=== PATIENT | male | born 1995 | race Caucasian/White ===

== ENCOUNTER 2017-05-30 15:17 | Inpatient (IN) ==
[2017-05-30] MEDS ORDERED: ONDANSETRON 4 MG/2 ML VIAL IVP ONE (15:40)
[2017-05-30] MEDS ORDERED: KETOROLAC 15 MG/1 ML VIAL IVP ONE (15:40)
[2017-05-30] MEDS ORDERED: Sodium Chloride 0.9% 1,000 ML PRIMARY IV ONE ×2 (15:40→16:57)
--- NOTE | 2017-05-30 15:44 | PDOC ---
Abdomen/Flank HPI - General Chief Complaint: Abdomen Pain Stated Complaint: LOWER ABD PAIN Date Seen by Provider: 05/30/17 Time Seen by Provider: 15:39 Source: POSITIVE: Patient Exam Limitations: POSITIVE: No limitations Nurse's Notes Reviewed & Considered: Yes - History of Present Illness Initial Comments: This is a well-developed, well-nourished, 21-year-old male, complaining of abdominal pain. Patient with suprapubic abdominal pain and ongoing for 24 hours complaining of nausea vomiting, sweats and chills, and dysuria. His symptoms began suddenly yesterday and have escalated today. 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 He has a mild headache, denies sore throat, denies chest pain or shortness of breath, no cough. Body Location Affected: REPORTS: Abdomen Timing: REPORTS: Abrupt, Getting Worse Duration: >24 hours Severity: Severe Quality: REPORTS: "Pain" Abdominal Pain Onset Location: REPORTS: Suprapubic Abdominal Pain Radiation: REPORTS: RLQ, LLQ, Periumbilical, Groin Context: REPORTS: None Modifying Factors: improves with: Nothing Associated Symptoms: REPORTS: Chills, Diaphoresis, Nausea, Vomiting Similar Symptoms Previously: No Recent Care Received: REPORTS: Denies Any Prior Injuries Related to Current Complaint?: No - Patient Home Medications Home Medications: Home Medications NK [NK] 05/30/17 - Patient Allergies Allergies/Adverse Reactions: Allergies 3 Allergy/AdvReac Type Severity Reaction Status Date / Time No Known Allergies Allergy Verified 05/30/17 15:19 Past Medical History - heen HEENT History: Denies History Cardiovascular History: Denies History Respiratory History: Denies History Gastrointestinal History: Denies History Genitourinary History: Denies History Endocrine History: Denies History Musculoskeletal History: Denies History, Other (please comment) Prosthesis or Implant: No Additional Musculoskeletal History: RT LEG FX WITH SURGICAL REPAIR Neurological History: Denies History Blood Disorders: Denies History Psychiatric History: Denies History Cancer History: Denies History In Past Year Been Physically Harmed or Verbally Threatened: No History of MDRO: No Tobacco Use: Never Smoker Alcohol Use: None In the Past 12 Months, Have Used or Abuse Any Substance: None Previous Surgical History: Yes Type / Date of Surgery: RIGHT ANKLE Anesthesia Reactions: No Significant Family History: No pertinent family hx ROS - Limitations ROS Limitations: No Limitations Constitution: REPORTS: Chills, Diaphoresis Cardiovascular: REPORTS: Denies Cardiac Symptoms Respiratory: REPORTS: Denies Resp Symptoms Neurological: REPORTS: Headache Gastrointestinal: REPORTS: Abdominal Pain, Nausea, Vomitting Endocrine: REPORTS: Denies Symptoms Musculoskeletal: REPORTS: Denies MS Symptoms Genitourinary: REPORTS: Dysuria Eyes: REPORTS: Denies Symptoms ENT: REPORTS: Denies Symptoms Skin: REPORTS: Denies Skin Symptoms Lympathic: REPORTS: Denies Lympathic Symptoms Immunologic: POSITIVE: Denies Symptoms Psychiatric: POSITIVE: Denies Psych Symptoms Abdominal/Flank Pain PE - General Appearance General Appearance: POSITIVE: Alert, Cooperative, No Evidence of Trauma, Moderate Distress - HEENT HEENT: POSITIVE: Head Inspection Nml, Eyes Inspection Nml, Ears Inspection Nml, Nose Inspection Nml, Oral/Dental Inspect. Nml, Pharynx Inspect. Nml, PERRL, EOMI - Neck Neck: POSITIVE: Normal Inspection, No Apparent Injury - Respiratory Respiratory: POSITIVE: No Respiratory Distress, Breath Sounds Normal, Chest Non- Tender - Cardiovascular Cardiovascular: POSITIVE: Regular Rate and Rhythm, Heart Sounds Normal - Chest Chest: POSITIVE: Non Tender - Abdomen Abdomen: Soft: (All Quadrants), Normal Bowel Sounds: (All Quadrants), Denies Tenderness: (All Quadrants), No Splenomegaly: (All Quadrants), No Hepatomegaly: (All Quadrants), No Guarding: (All Quadrants), No Rebound: (All Quadrants), No Palpable Pulse: (All Quadrants), No Palpabale Mass: (All Quadrants), No Distention: (All Quadrants), No Rigidity: (All Quadrants) - Back Back: POSITIVE: Normal Inspection - Skin Skin: POSITIVE: Intact, Normal For Race, Warm, Dry, No Rash - Extremities Extremity: Non-Tender: (All Extremities), Normal ROM: (All Extremities), Normal Inspection: (All Extremities), Pelvis Stable: (All Extremities) - Neurological Neurological: POSITIVE: Oriented X3, Motor Normal, Sensation Normal - Psychological Psychiatric: POSITIVE: Affect Appropriate, Mood Appropriate Abdomen Progress - Results Reviewed by me Xrays/CTs/US Reviewed by me: Yes Discussed with Radiologist: Yes Radiology Findings: Acute appendicitis, retrocecal appendix, nonruptured Lab Results Reviewed by Me: Yes CBC and BMP: 05/30/17 15:32 05/30/17 15:32 - Patient's Progress Pain Medication Addressed: POSITIVE: Yes Re-examine Time: 18:37 Status: POSITIVE: Improved MDM / ED Course: Patient was examined, an IV started, blood drawn and sent to the lab for studies , radiographic examinations were obtained. Findings: CBC shows a white count of 14. CMP is unremarkable. CT scan of his abdomen shows retrocecal appendix with appendicitis and non-ruptured appendix. Assessment: Appendicitis Plan Dr. Loaiza, the on-call surgeon, has been contacted and is coming to the emergency room to evaluate the patient. - Consult Consult (If Yes, Name of Consulting MD & Time Called): Yes (Dr. Loaiza 1830hrs) Consulting MD will see pt:: POSITIVE: In ED Counseled: POSITIVE: Patient, Family, RE: Lab Results, RE: Radiology Results, RE : DX, RE: Need for F/U Patient Care Time - Estimated PCT Patient Care Time (In Minutes): 30 Vital Signs - VS Reviewed Vital Signs Reviewed: Yes Discharge Clinical Impression: Appendicitis Discharge Disposition: Transferred to OR Condition: Stable Follow Up With: NONE,NONE [Primary Care Provider] -
[2017-05-30 15:47] LABS: BASOPHILS # (AUTO) 0.02 10*3/UL; BASOPHILS % (AUTO) 0.2 % (0-1); EOSINOPHILS # (AUTO) 0 10*3/UL; EOSINOPHILS % (AUTO) 0 % (0-8); Hematocrit [HCT] 41.4 % (42.0-52.0); Hemoglobin [HGB] 14.2 g/dL (14.0-18.0); LYMPHOCYTES # (AUTO) 1.71 10*3/uL; MEAN CORPUSCULAR HEMOGLOBIN 29.2 PG (27-31); MEAN CORPUSCULAR HGB CONC 34.3 g/dL (33-37); MEAN CORPUSCULAR VOLUME 85.2 FL (80-90); MEAN PLATELET VOLUME 9.4 FL (7.4-12.2); MONOCYTES # (AUTO) 1.65 10*3/UL (0.3-0.8); MONOCYTES % (AUTO) 12.5 % (5-15); NEUTROPHILS # (AUTO) 9.84 10*3/UL; NEUTROPHILS % (AUTO) 74.3 % (50-80); RED BLOOD COUNT 4.86 10^6/uL (4.70-6.10)
[2017-05-30 15:49] LABS: PLATELET MORPHOLOGY COMMENT NORMAL MORPHOLOGY (NORM); RBC MORPHOLOGY COMMENT NORMAL MORPHOLOGY (NORM); WBC MORPHOLOGY COMMENT NORMAL MORPHOLOGY (NORM)
[2017-05-30 15:55] LABS: BLOOD UREA NITROGEN 8 mg/dL (7-22); BUN/CREATININE RATIO 8.88 (6-20); SERUM ALBUMIN 4.5 g/dL (3.5-4.8)
[2017-05-30 15:59] LABS: VENOUS PH 7.54 (7.32-7.42)
[2017-05-30] MEDS ORDERED: Magnesium Sulfate 2gm (Premix) 2 GM/50 ML BAG IV ONE ×2 (16:33→23:39)
[2017-05-30] MEDS ORDERED: ACETAMINOPHEN 500 MG TABLET PO ONE (16:42)
[2017-05-30 17:44] LABS: BILIRUBIN,URINE NEGATIVE (NEG); CLARITY,URINE CLEAR (CLEAR); GLUCOSE, URINE (UA) NEGATIVE (NEG); OCCULT BLOOD,URINE NEGATIVE (NEG); PROTEIN,URINE NEGATIVE (NEG); UROBILINOGEN,URINE 0.2 EU/dL (0.2)
[2017-05-30 17:45] LABS: COLOR,URINE AMBER (Y); URINE SAMPLE TYPE VOIDED SPECIMEN
[2017-05-30] MEDS ORDERED: MORPHINE SULFATE 2 MG/1 ML IVP ONE (18:07)
[2017-05-30] MEDS ORDERED: Lactated Ringers 1,000 ML PRIMARY IV ONE (18:33)
[2017-05-30] MEDS ORDERED: MORPHINE SULFATE 4 MG/1 ML IVP ONE (18:33)
--- NOTE | 2017-05-30 18:34 | DI ---
CT Abdomen/Pelvis W Contrast,05/30/2017 3:40 PM: Clinical History: Abdominal pain Previous Exam: None at this facility. Findings: Multiple helically acquired CT images are obtained through the abdomen and pelvis following the intra venous demonstration of 95 ECA of Isovue 300, and demonstrate some inflammatory fluid within the deep pelvis. There is thickening of the terminal ileum and some perienteric inflammatory changes of the t erminal ileum. There is dense material layering within the cecum. The liver, gallbladder, spleen, pancreas, adrenals and kidneys are unremarkable. There is no mesenteric nor retroperitoneal lymphadenopathy. The appendix is enlarged and inflamed ly suring 12 mm in diameter. Impression: Acute appendicitis with secondary inflammation of the terminal ileum and layering free fluid in the d eep pelvis.
[2017-05-30] MEDS ORDERED: BUPivacaine 0.5%/Epi Inj 50 ML VIAL ONE (19:16)
[2017-05-30] MEDS ORDERED: NORMAL SALINE 10 ML SYRINGE FLUSH IVP PRN ×3 (19:20→22:02)
[2017-05-30] MEDS ORDERED: PROPOFOL 10 MG/1 ML (200 MG/20 ML) VIAL IV ONE (19:21)
[2017-05-30] MEDS ORDERED: LIDOCAINE MPF 2% - 5 ML (20 MG/1 ML) ONE (19:22)
[2017-05-30] MEDS ORDERED: MIDAZOLAM 5 MG/1 ML ONE (19:22)
[2017-05-30] MEDS ORDERED: Sodium Chloride 0.9% vial 10 ML ONE (19:22)
[2017-05-30] MEDS ORDERED: SUFENTANIL 50 MCG/1 ML ONE (19:22)
[2017-05-30] MEDS ORDERED: ROCURONIUM 10 MG/1 ML - 5 ML VIAL IVP ONE (19:27)
[2017-05-30] MEDS ORDERED: KETAMINE 100 MG/1 ML - 5 ML ONE (19:28)
--- NOTE | 2017-05-30 19:29 | CONSULT ---
Consult Note - Consult Consult Date: 05/30/17 Reason for Consult: PreOp Consulation : General Surgery Requesting Physician: Dr. Gil Primary Care Provider: NONE NONE - History of Present Illness History of Present Illness: Patient is a 21-year-old male who presented to the emergency room with abdominal pain. Workup reveals acute appendicitis. I'm asked to see him in consultation. Patient reports that yesterday he started feeling like he had the flu. He had some nausea and vomiting and a little diarrhea. At approximately 2 AM this morning he felt cramping abdominal pain below his umbilicus. It felt stabbing. It hurt more with urination. He reports he hasn't had any nausea or vomiting since yesterday. He's had no fever or chills. He's never had a pain like this before. The patient has been constant. It is worse with activity. He presented to the emergency room. White count was elevated at 13,200. CT scan is consistent with acute retrocecal appendicitis with some free pelvic fluid. Possibility of ruptured appendix exists. Review of Systems - Gastrointestinal Gastrointestinal / Abdominal: REPORTS: Nausea, Vomiting, Diarrhea, Abdominal Pain, Poor Appetite, Bloating, See HPI Past Medical History Medical History: Substance abuse. Opiates. 38 days drug-free. Surgical History: Right ankle fracture Tobacco Use: Never Smoker Do you dip or chew tobacco: Yes In the Past 12 Months, Have Used or Abuse Any of the Following Substance: Opiate Pain Medication (Drug free 38 days.) Alcohol Use: Rarely Medication / Allergies Home Medications: Home Medications Medication Instructions Recorded Confirmed Type NK [NK] 05/30/17 05/30/17 History Allergies/Adverse Reactions: Allergies 3 Allergy/AdvReac Type Severity Reaction Status Date / Time No Known Allergies Allergy Verified 05/30/17 15:19 Results - Labs CBC and BMP: 05/30/17 15:32 05/30/17 15:32 - Imaging Status: Image Reviewed by Me (And discussed with the radiologist.), Report Reviewed by Me Exam - Vitals Vital Signs: Vital Signs Temperature 100.5 F Temperature Source Oral Pulse Rate [Pulse Oximeter] 82 Respiratory Rate 18 Blood Pressure [Right Arm] 109/49 Blood Pressure [Left Arm] 127/66 Pulse Ox 96 Oxygen Delivery Method Room Air Height 6 ft 1 in Weight 163 lb - General General Appearance: Cooperative, Mild Distress - Respiratory Respiratory Exam: POSITIVE: Clear to Auscultation - Bilaterally, Breathing Non Labored - Cardiovascular Cardiovascular Exam: POSITIVE: RRR, No Murmur - GI/Abdominal GI/Abdominal Exam: POSITIVE: Firm, Distended, Guarding, Hypoactive Bowel Sounds , Rebound Additional GI/Abdominal Exam Details: Right lower quadrant and suprapubic tenderness with focal rebound and guarding. Hypoactive bowel tones. - Rectal Rectal Exam: POSITIVE: Deferred - Neurological Neurological Exam: POSITIVE: Alert, Oriented x 3 - Psychiatric Psychiatric Exam: POSITIVE: Normal Affect, Normal Mood Assessment and Plan - Patient Problems (1) Acute appendicitis with localized peritonitis Current Visit: Yes Status: Acute Priority: High Onset Date: ~05/28/17 Comment: Consistent with acute appendicitis. Possible perforation. Proceed with open appendectomy.The procedure has been discussed with the patient in complete yet simple terms including benefits, risks, and alternatives. All questions have been answered. Informed consent has been obtained. Code(s): K35.3 - Acute appendicitis with localized peritonitis
[2017-05-30] MEDS ORDERED: Ertapenem Inj 1 GM in Sodium Chloride 0.9% 100 ML IV ONE (19:30)
[2017-05-30] MEDS ORDERED: Lactated Ringers 1,000 ML PRIMARY IV SCH (19:30)
[2017-05-30] MEDS ORDERED: ERTAPENEM 1 GM VIAL ONE (19:35)
[2017-05-30] MEDS ORDERED: Sodium Chloride 0.9% 100 ML IV ONE (19:35)
[2017-05-30] MEDS ORDERED: NEOSTIGMINE 1 MG/1 ML - 10 ML ONE (20:15)
[2017-05-30] MEDS ORDERED: GLYCOPYRROLATE 0.2 MG/1 ML VIAL ONE (20:15)
[2017-05-30] MEDS ORDERED: BUPivacaine Liposome/PF (Exparel) Inj 20ml vial INFIL ONE (20:36)
[2017-05-30] MEDS ORDERED: KETOROLAC 30 MG/1 ML VIAL ONE (20:38)
[2017-05-30] MEDS ORDERED: SUFENTANIL 50 MCG/1 ML IV ONE (20:46)
[2017-05-30] MEDS ORDERED: KETAMINE 100 MG/1 ML - 5 ML IV ONE (20:46)
--- NOTE | 2017-05-30 21:10 | GEN.OPNOTE ---
Operative Note Surgery Date: 05/30/17 Preoperative Diagnosis: Acute appendicitis-possible rupture. Postoperative Diagnosis: Acute appendicitis with gangrenous change. Probable rupture. Pelvic fluid. Procedure: Appendectomy. 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 1 g of IV Invanz at the start of the procedure. 30 mg of IV Toradol at the end of the procedure. Pathology: Specimen to pathology. Indications: Clinical exam and CT consistent with acute appendicitis. White count elevated to 13,000. Pelvic fluid present on CT scan. Findings: Acute appendicitis with gangrenous change at the base. Turbid fluid in the pelvis. No robert pus. Complications: None. Operative Summary: The patient was taken to the operating suite and placed on the operating table in a supine position. General anesthetic was administered per the ANATOLY. The abdomen was prepped and draped in a sterile fashion. The usual timeout was performed. An incision was made over McBurney's point and carried down to the external oblique with electrocautery. The external oblique was split along the course of its fibers with electrocautery. The abdominal wall was transected using a muscle-splitting technique. The peritoneum was elevated and incised. There was turbid fluid. This was cleared with suction. An Sage retractor was placed. The initial irrigation and suctioning were performed. The retrocecal appendix was mobilized digitally. The cecum and gangrenous appendix were delivered through the wound. The mesoappendix was taken down by serially clamping dividing and ligating the mesoappendix with 2-0 Vicryl sutures. This was done until the appendix was cleared to its base. The base the appendix was inspected. The gangrenous change went right to the base. The appendix was elevated. A 30 mm stapler was placed across the base of the cecum, closed, and fired. The appendix was amputated. The staple line was oversewn with a running imbricating suture of 2-0 Vicryl. Hemostasis was assured. Extensive irrigation was performed. The cecum was returned to a relative anatomic position and covered with omentum. The peritoneum was closed with 2-0 Vicryl. The internal oblique and transversus abdominis were closed together with 0 Vicryl. The wound was irrigated as we closed in layers. The external oblique was closed with 0 Vicryl. The wound was extensively irrigated. Lo's fascia was closed with 2- 0 Vicryl. The subcutaneous tissue was infiltrated with Exparel. The skin was loosely reapproximated with surgical lizbeth followed by an appropriate dressing. The patient tolerated all aspects of the procedure well without complication. He was taken to the recovery room in stable condition. All counts were correct. Patient Problems - Patient Problem List (1) Acute appendicitis with localized peritonitis Current Visit: Yes Status: Acute Onset Date: ~05/28/17 Priority: High Code(s): K35.3 - Acute appendicitis with localized peritonitis Category: Medical
--- NOTE | 2017-05-30 21:37 | CRNA.PROGR ---
Anesthesia Recovery Phase I - Post Anesthesia Evaluation Patient's Condition on Arrival in Phase I: Unstable Patient's Condition on Arrival in Phase II: Fair Pain Level: 0 (Pt is in negative pressure pulmonary edema as a result of laryngospasm during emergence from GETA.)
[2017-05-30] MEDS ORDERED: SUCCINYLCHOLINE CHLORIDE 20 MG/1 ML - 10 ML ONE (21:55)
[2017-05-30] MEDS ORDERED: ONDANSETRON 4 MG/2 ML VIAL IVP PRN (22:02)
[2017-05-30] MEDS ORDERED: HYDROcodone-APAP 5 MG -325 MG TABLET PO PRN (22:02)
--- NOTE | 2017-05-30 22:16 | CRNA.PROGR ---
Post Anesthesia Phase II - Post Anesthesia Phase II Problems, Treatments or Complications During Recovery: Pt acquired negative pressure pulmonary edema after a laryngospasm post extubation during emergence. Patient Stable and Discharged To: Med/Surg Care Assumed By Surgeon: Wilver Loaiza MD Temperature: 98.8 F Pulse Rate: 81 Respiratory Rate: 20 Blood Pressure: 108/61 Pulse Ox: 96 Total Franchesca Score at Discharge: 8 Post Anesthesia Discharge Criteria Met: Yes Additional Details: Pts respiratory status continues to improve with the dose of lasix and the positive pressure, bipap. VSS, Alert And Oriented, pain under control
--- NOTE | 2017-05-30 22:17 | CRNA.PROGR ---
Anesthesia Time - - Start date: 05/30/17 End date: 05/30/17 - Procedure/Recovery Time Anesthesia : Time In: 19:35 Anesthesia : Time Out: 21:35 Anesthesia : Total Time: 120 - Total Anesthesia Time Total Anesthesia Time (minutes): 120 - Other Weight: 73.936 kg Height: 6 ft 1 in Body Mass Index (BMI): 21.4 Physical Status: P2 Anesthesia Type: General Anesthesia : ET
--- NOTE | 2017-05-30 23:25 | CONSULT ---
Consult Note - Consult Consult Date: 05/30/17 Reason for Consult: PostOp Consulation : General Surgery Primary Care Provider: NONE NONE HPI - History of Present Illness Date of Service: 05/30/17 Time of Service: 23:25 Chief Complaint: respiratory failure History of Present Illness: This is a pleasant 21 YO male that recently stopped using narcotics and has no other medical issues who presented with an acute appendicitis today. He states he had abdominal pain and nausea and vomiting a day and a half before coming in for evaluation in the ER today. He went to surgery today with Dr. Loaiza, and as he was being extubated, the patient developed severe laryngospasm. He was extubated and developed a pink, frothy cough. He was hypoxic. He was placed on BiPaP, was given oxygen and lasix. The patient tells me he feels a bit better, but is still saturating about 89% on 5 LPM NC. A chest X-ray was consistent with flash pulmonary edema. He has never had this happen before. He does state his abdomen hurts. He does not smoke, but does chew tobacco. He denies any cardiac issues. Past Medical History Medical History: Substance abuse. Opiates. 38 days drug-free. Surgical History: Right ankle fracture Pertinent Family History: no history of heart disease or diabetes in the family. Past Social History: does not smoke. denies alcohol abuse. works as an airplane electrician. recently quit opiates. Tobacco Use: Never Smoker Do you dip or chew tobacco: Yes In the Past 12 Months, Have Used or Abuse Any of the Following Substance: Opiate Pain Medication Alcohol Use: Rarely Review of Systems - Review of Systems All Systems: Reviewed & No Additional Complaints Except as Stated (I did a 12 point review of systems and it was negative except as per HPI.) Medication / Allergies Home Medications: Home Medications Medication Instructions Recorded Confirmed Type NK [NK] 05/30/17 05/30/17 History Allergies/Adverse Reactions: Allergies 3 Allergy/AdvReac Type Severity Reaction Status Date / Time No Known Allergies Allergy Verified 05/30/17 15:19 Exam - Vitals Vital Signs: Vital Signs Temperature 98.8 F Temperature Source Temporal Artery Scan Pulse Rate [Pulse Oximeter] 77 Pulse Rate 81 Respiratory Rate 20 Blood Pressure [Right Arm] 99/65 Blood Pressure [Left Arm] 105/60 Blood Pressure 108/61 Pulse Ox 96 Oxygen Flow Rate bipap Oxygen Delivery Method Nasal Cannula Height 6 ft 1 in Weight 163 lb - General General Appearance: Cooperative, Mild Distress Additional General Exam Details: coughing frequently, pink, frothy sputum. - Head Head Exam: Normal Inspection, Normocephalic, Atraumatic - Eye Eye Exam: POSITIVE: No Scleral Icterus - ENT ENT Exam: POSITIVE: Mucous Membranes Dry - Neck Neck Exam: Normal Inspection, No Tenderness, No Lymphadenopathy, No Thyromegaly - Respiratory Respiratory Exam: POSITIVE: Decreased Breath Sounds, Rhonci, Crackles, Coarse Breath Sounds - Cardiovascular Cardiovascular Exam: POSITIVE: RRR, No Murmur, No Clicks, No Gallops, No Rubs, No JVD - GI/Abdominal GI/Abdominal Exam: POSITIVE: Non Distended, Soft - Rectal Rectal Exam: POSITIVE: Deferred - External Exam: POSITIVE: Deferred Exam: POSITIVE: Deferred - Extremities Extremities Exam: POSITIVE: No Clubbing Present, No Edema Present, No Cyanosis Present - Back Back Exam: POSITIVE: No CVA Tenderness - Neurological Neurological Exam: POSITIVE: Alert, Oriented x 3, No Facial Droop, Speech Intact / Clear, Moves All Extremities Equally - Psychiatric Psychiatric Exam: POSITIVE: Normal Affect, Normal Mood - Integumentary Integumentary Exam: POSITIVE: Normal Color, Warm, Dry, Intact Results - Labs CBC and BMP: 05/30/17 15:32 05/30/17 15:32 Additional Lab Results: Laboratory Results 05/30/17 05/30/17 05/30/17 Range/Units 15:32 15:32 15:32 WBC 13.23 H (4.8-10.8) 10^3/uL RBC 4.86 (4.70-6.10) 10^6/uL Hgb 14.2 (14.0-18.0) g/dL Hct 41.4 L (42.0-52.0) % MCV 85.2 (80-90) FL MCH 29.2 (27-31) PG MCHC 34.3 (33-37) g/dL RDW Std Deviation 39.1 (39-50) fL RDW Coeff of Inocencia 12.7 (11.5-14.5) % Plt Count 215 (140-350) 10*3/uL MPV 9.4 (7.4-12.2) FL Immature Gran % (Auto) 0.1 (0-5) % Neut % (Auto) 74.3 (50-80) % Lymph % (Auto) 12.9 (10-50) % [place] % (Auto) 12.5 (5-15) % Eos % (Auto) 0 (0-8) % Baso % (Auto) 0.2 (0-1) % Immature Gran # (Auto) 0.01 10*3/UL Neut # (Auto) 9.84 10*3/UL Lymph # (Auto) 1.71 10*3/uL [place] # (Auto) 1.65 H (0.3-0.8) 10*3/UL Eos # (Auto) 0 10*3/UL Baso # (Auto) 0.02 10*3/UL WBC Morphology Comment Normal morphology (NORM) Plt Morphology Comment Normal morphology (NORM) RBC Morph Comment Normal morphology (NORM) VBG pH (7.32-7.42) VBG pCO2 (45-55) mmHg VBG HCO3 (22-26) mmol/L VBG Base Excess (-2-2) MMOL/L Sodium 142 (135-145) meq/L Potassium 3.1 L (3.8-5.2) meq/L Chloride 102 (98-112) meq/L Carbon Dioxide 25 (23-33) meq/L Anion Gap 15 (5-20) BUN 8 (7-22) mg/dL Creatinine 0.9 (0.70-1.50) mg/dL Estimated GFR > 60 (>60 ml/min/1.73m(2)) BUN/Creatinine Ratio 8.88 (6-20) Glucose 125 H (78-110) mg/dL Calculated Osmolality 292.0 (267-292) mOsm/kg Lactic Acid 1.2 (0.70-2.10) MMOL/L Calcium 9.0 (8.7-10.7) mg/dL Magnesium 1.4 L (1.6-2.4) mg/dL Total Bilirubin 1.3 H (0.3-1.2) mg/dL AST 19 L (21-57) IU/L ALT 67 (21-72) IU/L Alkaline Phosphatase 123 (38-126) IU/L C-Reactive Protein 5.7 H (0.0-0.9) mg/dL Total Protein 7.7 (6.1-8.0) g/dL Albumin 4.5 (3.5-4.8) g/dL Globulin 3.2 (2.50-4.10) g/dL Albumin/Globulin Ratio 1.40 (1.3-2.0) mg/g Ur Collection Type Urine Color (Y) Urine Clarity (CLEAR) Urine pH (5.0-8.5) Ur Specific [place] (1.005-1.030) Urine Protein (NEG) mg/dl Urine Glucose (UA) (NEG) mg/dL Urine Ketones (NEG) Urine Occult Blood (NEG) Urine Nitrate (NEG) Urine Bilirubin (NEG) Urine Urobilinogen (0.2) EU/dL Ur Leukocyte Esterase (NEG) Ur Culture Indicated? 05/30/17 05/30/17 Range/Units 15:54 17:40 WBC (4.8-10.8) 10^3/uL RBC (4.70-6.10) 10^6/uL Hgb (14.0-18.0) g/dL Hct (42.0-52.0) % MCV (80-90) FL MCH (27-31) PG MCHC (33-37) g/dL RDW Std Deviation (39-50) fL RDW Coeff of Inocencia (11.5-14.5) % Plt Count (140-350) 10*3/uL MPV (7.4-12.2) FL Immature Gran % (Auto) (0-5) % Neut % (Auto) (50-80) % Lymph % (Auto) (10-50) % [place] % (Auto) (5-15) % Eos % (Auto) (0-8) % Baso % (Auto) (0-1) % Immature Gran # (Auto) 10*3/UL Neut # (Auto) 10*3/UL Lymph # (Auto) 10*3/uL [place] # (Auto) (0.3-0.8) 10*3/UL Eos # (Auto) 10*3/UL Baso # (Auto) 10*3/UL WBC Morphology Comment (NORM) Plt Morphology Comment (NORM) RBC Morph Comment (NORM) VBG pH 7.54 H (7.32-7.42) VBG pCO2 30 L (45-55) mmHg VBG HCO3 26 (22-26) mmol/L VBG Base Excess 3 H (-2-2) MMOL/L Sodium (135-145) meq/L Potassium (3.8-5.2) meq/L Chloride (98-112) meq/L Carbon Dioxide (23-33) meq/L Anion Gap (5-20) BUN (7-22) mg/dL Creatinine (0.70-1.50) mg/dL Estimated GFR (>60 ml/min/1.73m(2)) BUN/Creatinine Ratio (6-20) Glucose (78-110) mg/dL Calculated Osmolality (267-292) mOsm/kg Lactic Acid (0.70-2.10) MMOL/L Calcium (8.7-10.7) mg/dL Magnesium (1.6-2.4) mg/dL Total Bilirubin (0.3-1.2) mg/dL AST (21-57) IU/L ALT (21-72) IU/L Alkaline Phosphatase (38-126) IU/L C-Reactive Protein (0.0-0.9) mg/dL Total Protein (6.1-8.0) g/dL Albumin (3.5-4.8) g/dL Globulin (2.50-4.10) g/dL Albumin/Globulin Ratio (1.3-2.0) mg/g Ur Collection Type Voided specimen Urine Color [place] A (Y) Urine Clarity Clear (CLEAR) Urine pH 7.0 (5.0-8.5) Ur Specific [place] 1.010 (1.005-1.030) Urine Protein Negative (NEG) mg/dl Urine Glucose (UA) Negative (NEG) mg/dL Urine Ketones Negative (NEG) Urine Occult Blood Negative (NEG) Urine Nitrate Negative (NEG) Urine Bilirubin Negative (NEG) Urine Urobilinogen 0.2 (0.2) EU/dL Ur Leukocyte Esterase Negative (NEG) Ur Culture Indicated? Culture not set - Imaging Status: Image Reviewed by Me (CXR, on my view, consistent with flash pulmonary edema), Report Reviewed by Me (I reviewed the CT of the abdomen report.) Assessment and Plan - Patient Problems (1) Flash pulmonary edema Current Visit: Yes Status: Acute Code(s): J81.0 - Acute pulmonary edema (2) Acute respiratory distress syndrome (ARDS) Current Visit: Yes Status: Acute Code(s): J80 - Acute respiratory distress syndrome (3) Acute post-operative pain Current Visit: Yes Status: Acute Code(s): G89.18 - Other acute postprocedural pain (4) Hypomagnesemia Current Visit: Yes Status: Acute Code(s): E83.42 - Hypomagnesemia (5) Hypokalemia Current Visit: Yes Status: Acute Code(s): E87.6 - Hypokalemia (6) Laryngospasm Current Visit: Yes Status: Acute Code(s): J38.5 - Laryngeal spasm (7) Appendicitis Current Visit: Yes Status: Acute Code(s): K37 - Unspecified appendicitis - Assessment / Plan Additional Assessment/Plan Details: this is most likely a situation of negative pressure induced pulmonary edema ( noncardiogenic pulmonary edema) in which the described laryngospasm can create an acute negative intrathoracic pressure. Probably this caused damage to capillaries in the lung, and with increased venous return, likely led to leaky capillaries. at this point, BiPaP may help given electrolyte abnormalities, I would recommend replacing magnesium and potassium aggressively may need further doses of lasix, but would like to get electrolytes replaced. morphine, despite the history of narcotic addiction, may help reduce afterload and may help with edema. though this is a rare event, reportedly in less than 0.1% in general anesthesia cases per my literature review, it is more common in younger, athletic males. some patients can decompensate and require intubation and mechanical ventilation --I think it would be best to get the eICU involved. If the patient does end up requiring intubation, I would recommend transfer at that point, but for now, I think we are okay watching the patient here, but I will move him to one of our camera rooms for eICU monitoring. check CXR in AM thanks for consult, will be glad to follow and assist in the patient's care during the hospital stay.
[2017-05-30] MEDS: MORPHINE SULFATE 2 MG/1 ML IVP PRN (23:31)
[2017-05-30 23:59] LABS: BLOOD UREA NITROGEN 9 mg/dL (7-22)
[2017-05-31] MEDS ORDERED: Sodium Chloride 0.9% 500 ML IV ONE (00:02)
[2017-05-31] MEDS: Zolpidem Tab 5 MG TAB PO PRN ×2 (00:08→21:22)
[2017-05-31] MEDS: MORPHINE SULFATE 2 MG/1 ML IVP PRN ×2 (00:19→07:28)
[2017-05-31] MEDS: Acetaminophen 1000mg Inj 1,000 MG/100 ML VIAL IV PRN ×3 (00:45→17:06)
[2017-05-31] MEDS: KETOROLAC 15 MG/1 ML VIAL IVP SCH ×4 (02:21→20:29)
[2017-05-31 05:09] LABS: BASOPHILS # (AUTO) 0.02 10*3/UL; BASOPHILS % (AUTO) 0.1 % (0-1); EOSINOPHILS # (AUTO) 0 10*3/UL; EOSINOPHILS % (AUTO) 0 % (0-8); Hemoglobin [HGB] 13.4 g/dL (14.0-18.0); LYMPHOCYTES # (AUTO) 0.83 10*3/uL; MEAN CORPUSCULAR HEMOGLOBIN 28.9 PG (27-31); MEAN CORPUSCULAR HGB CONC 33.5 g/dL (33-37); MEAN CORPUSCULAR VOLUME 86.2 FL (80-90); MONOCYTES # (AUTO) 0.73 10*3/UL (0.3-0.8); MONOCYTES % (AUTO) 5.4 % (5-15); NEUTROPHILS # (AUTO) 11.95 10*3/UL; NEUTROPHILS % (AUTO) 88.3 % (50-80); RED BLOOD COUNT 4.64 10^6/uL (4.70-6.10)
[2017-05-31 05:14] LABS: PLATELET MORPHOLOGY COMMENT NORMAL MORPHOLOGY (NORM); RBC MORPHOLOGY COMMENT NORMAL MORPHOLOGY (NORM); WBC MORPHOLOGY COMMENT NORMAL MORPHOLOGY (NORM)
[2017-05-31 05:18] LABS: BLOOD UREA NITROGEN 11 mg/dL (7-22); BUN/CREATININE RATIO 13.75 (6-20)
--- NOTE | 2017-05-31 08:07 | DI ---
XR CXR 1VW,05/30/2017 9:15 PM: Clinical History: Pulmonary edema Previous Exam: October 06, 2009 Findings: A single frontal radiograph of the chest is obtained, and demonstrates diffuse pulmonary edema. Overl sergei EKG leads are seen. The cardiomediastinum and bony thorax are unremarkable. Impression: Diffuse pulmonary edema.
--- NOTE | 2017-05-31 08:09 | DI ---
XR CXR 1VW,05/31/2017 7:00 AM: Clinical History: Pulmonary edema Previous Exam: May 30, 2017 Findings: A single frontal radiograph of the chest is obtained, and demonstrate some stable pulmonary edema. Ov erlying EKG leads are seen. The cardiomediastinum and bony thorax are unremarkable. Impression: Diffuse pulmonary edema essentially unchanged from the prior exam.
--- NOTE | 2017-05-31 09:35 | CRNA.PROGR ---
Anesthesia Note - Progress Notes Anesthesia Progress Note: Post OP Anesthesia Note Pt is sitting up in bed, A&O, resting comfortably. Coughing has reduced significantly. Vital signs have remained stable throughout the night. The patients lung sounds have cleared up on the right but remain "wet" on the left. CXR this am shows significant improvement from last nights CXR. I encouraged the patient to wear the BIPAP mask for as long as possible today. Current VS. Vital Signs (Last 8 hours) Temp Pulse Resp BP Pulse Ox 05/31/17 04:33 97.8 F 74 23 103/62 96 05/31/17 03:16 95 05/31/17 02:00 98.3 F 78 24 90/50 93
[2017-05-31] MEDS ORDERED: HYDROmorphone 2 MG/1 ML IVP ONE (10:10)
--- NOTE | 2017-05-31 12:17 | PDOC(PROG) ---
Subjective Post Op Day: 1 Pain Management: IV narcotic, Tylenol and Toradol Larson Catheter: No Flatus: Yes Diet: NPO Ambulating: Yes Date and Time of Service: 05/31/2017 12:12 PM Interval History: Patient had an uncomplicated appendectomy last night. Postoperatively he developed flash pulmonary edema. He has improved significantly overnight. He is down to 2 L of O2 per nasal cannula. With all of his coughing he has had more pain than usual. He has required some narcotics as well as IV Tylenol and Toradol. His coughing has decreased. Patient reports he is passing gas. He has not had a bowel movement. He is hungry and would like something to eat. I discussed his surgery as well as his flash pulmonary edema with the patient and his grandfather. All questions have been answered. Objective : Data - Labs CBC and BMP: 05/31/17 04:24 05/31/17 04:24 - Imaging Imaging Details: Chest x-ray this morning shows pulmonary edema. - Vital Signs Vital Signs and I&O: Vital Signs - Last Taken Temperature 98 F 05/31/17 09:00 Pulse Rate 66 05/31/17 09:00 Respiratory Rate 26 H 05/31/17 09:00 Blood Pressure 93/50 05/31/17 09:00 Pulse Ox 92 05/31/17 10:23 Intake and Output (24hr x 4 totals) 05/29/17 05/30/17 05/31/17 06/01/17 05:59 05:59 05:59 05:59 Intake Total 1387 / 3434 30 / 30 Output Total 350 / 650 550 / 550 Balance 1037 / 2784 -520 / -520 Objective : Exam - General General Appearance: No Acute Distress, Cooperative - Respiratory Respiratory Exam: Breathing Non Labored, Coarse Breath Sounds - Cardiovascular Cardiovascular Exam: RRR, No Murmur - GI/Abdominal GI/Abdominal Exam: Non Distended, Soft, Hypoactive Bowel Sounds Additional GI/Abdominal Exam Details: The dressing is clean, and dry and intact. The abdomen is soft. There is lower abdominal tenderness. Maximal at the dressing site. No signs of peritoneal irritation. - Neurological Neurological Exam: Alert - Psychiatric Psychiatric Exam: Flat Affect Assessment and Plan - Patient Problems (1) Acute appendicitis with localized peritonitis Current Visit: Yes Status: Acute Priority: High Onset Date: ~05/28/17 Comment: Status post appendectomy. Doing well. Had necrosis at the base of the appendix with turbid fluid in the pelvis. White count remains elevated. Continue to treat him as a ruptured appendix. We will start him on a full liquid diet and Hep-Lock his IV. Check labs in the morning. Code(s): K35.3 - Acute appendicitis with localized peritonitis (2) Flash pulmonary edema Current Visit: Yes Status: Acute Priority: Medium Onset Date: 05/30/17 Comment: Seems to be improving. Will Hep-Lock IV fluids. Continue pulmonary toilet. Code(s): J81.0 - Acute pulmonary edema
--- NOTE | 2017-05-31 16:48 | PDOC(PROG) ---
Date and Time of Service: 05/31/2012, 9 AM Interval History: No chest pain. Shortness of breath is better, patient states that he is not coughing up is much pink frothy sputum, but he swallowing more. He is down to 4 L per nasal cannula on his oxygen. Tolerated BiPAP for about half of the night and then discontinued. Abdominal pain persistent. Objective : Data - Labs CBC and BMP: 05/31/17 04:24 05/31/17 04:24 Additional Lab Results: 05/30/17 23:28 Calcium 8.8 Magnesium 1.6 Total Bilirubin 1.4 H AST 23 ALT 48 Alkaline Phosphatase 117 Total Protein 7.1 Albumin 4.0 Globulin 3.1 - Imaging X-Ray Status: Image Reviewed by Me (Chest x-ray, on my result, significant with pulmonary edema, not largely unchanged from yesterday.) Objective : Exam - General General Appearance: No Acute Distress, Cooperative - Head Head Exam: Normal Inspection, Normocephalic, Atraumatic - Eye Eye Exam: No Scleral Icterus - ENT ENT Exam: Mucous Membranes Moist - Respiratory Respiratory Exam: Breathing Non Labored, Rhonci, Coarse Breath Sounds - Cardiovascular Cardiovascular Exam: RRR, No Murmur, No Clicks, No Gallops, No Rubs, No JVD - GI/Abdominal GI/Abdominal Exam: Normal Bowel Sounds, Non Distended, Soft - Extremities Extremities Exam: No Clubbing Present, No Edema Present, No Cyanosis Present - Neurological Neurological Exam: Alert, Oriented x 3, No Facial Droop, Speech Intact / Clear, Moves All Extremities Equally Assessment and Plan - Patient Problems (1) Flash pulmonary edema Current Visit: Yes Status: Acute Priority: Medium Onset Date: 05/30/17 Code(s): J81.0 - Acute pulmonary edema (2) Acute respiratory distress syndrome (ARDS) Current Visit: Yes Status: Acute Code(s): J80 - Acute respiratory distress syndrome (3) Acute post-operative pain Current Visit: Yes Status: Acute Code(s): G89.18 - Other acute postprocedural pain (4) Hypomagnesemia Current Visit: Yes Status: Acute Code(s): E83.42 - Hypomagnesemia (5) Hypokalemia Current Visit: Yes Status: Acute Code(s): E87.6 - Hypokalemia (6) Laryngospasm Current Visit: Yes Status: Acute Code(s): J38.5 - Laryngeal spasm (7) Appendicitis Current Visit: Yes Status: Acute Code(s): K37 - Unspecified appendicitis - Assessment / Plan Additional Assessment/Plan Details: Definitely improved clinically, but still tenuous. I like to check another chest x-ray tomorrow. If his high oxygen requirement persists through the day, may need to consider Lasix even though he is low systolic pressures to slightly hypotensive (albeit asymptomatic) Check labs again in a.m. Postsurgical management as per Dr. Loaiza Hold off on any steroids. I don't think they will be helpful.
[2017-05-31] MEDS: oxyCODONE-ACETAMINOPHEN 5-325 TAB PO PRN ×2 (17:05→20:38)
[2017-05-31] MEDS: Ertapenem Inj 1 GM in Sodium Chloride 0.9% 100 ML IV SCH (20:28)
[2017-06-01] MEDS: Acetaminophen 1000mg Inj 1,000 MG/100 ML VIAL IV PRN (01:21)
[2017-06-01] MEDS: oxyCODONE-ACETAMINOPHEN 5-325 TAB PO PRN ×6 (01:24→20:02)
[2017-06-01] MEDS: KETOROLAC 15 MG/1 ML VIAL IVP SCH ×4 (04:42→20:03)
[2017-06-01 05:23] LABS: BASOPHILS # (AUTO) 0.01 10*3/UL; BASOPHILS % (AUTO) 0.1 % (0-1); EOSINOPHILS # (AUTO) 0.09 10*3/UL; EOSINOPHILS % (AUTO) 1.1 % (0-8); Hematocrit [HCT] 34.3 % (42.0-52.0); Hemoglobin [HGB] 11.3 g/dL (14.0-18.0); LYMPHOCYTES # (AUTO) 2.21 10*3/uL; MEAN CORPUSCULAR HGB CONC 32.9 g/dL (33-37); MEAN CORPUSCULAR VOLUME 87.9 FL (80-90); MEAN PLATELET VOLUME 9.8 FL (7.4-12.2); MONOCYTES % (AUTO) 11.1 % (5-15); NEUTROPHILS # (AUTO) 4.89 10*3/UL; NEUTROPHILS % (AUTO) 60.3 % (50-80)
[2017-06-01 05:26] LABS: PLATELET MORPHOLOGY COMMENT NORMAL MORPHOLOGY (NORM); RBC MORPHOLOGY COMMENT NORMAL MORPHOLOGY (NORM); WBC MORPHOLOGY COMMENT NORMAL MORPHOLOGY (NORM)
[2017-06-01 05:31] LABS: BLOOD UREA NITROGEN 10 mg/dL (7-22)
--- NOTE | 2017-06-01 07:33 | DI ---
XR CXR 1VW,06/01/2017 7:00 AM: Clinical History: Pulmonary edema Previous Exam: May 31, 2017 Findings: A single frontal radiograph of the chest is obtained, and demonstrate some stable airspace disease th roughout both lungs. The cardiomediastinum and bony thorax are unremarkable. Impression: Stable diffuse pulmonary edema.
--- NOTE | 2017-06-01 08:05 | PDOC(PROG) ---
Date and Time of Service: 06/01/2017 8 AM Interval History: Subjective Patient complaining from being sore and he points to the incision, he said he is also sore in his chest because of the coughing. Shortness of breath seemed to be improved. He is off the oxygen. Continue to have some cough. No significant phlegm production. Objective : Data - Labs CBC and BMP: 06/01/17 04:50 06/01/17 04:50 Objective : Exam - General General Appearance: No Acute Distress, Cooperative, Thin - Head Head Exam: Normal Inspection, Atraumatic - Eye Eye Exam: Normal Appearance - ENT ENT Exam: Normal Exam - Neck Neck Exam: Normal Inspection - Respiratory Respiratory Exam: Clear to Auscultation - Bilaterally - Cardiovascular Cardiovascular Exam: RRR - GI/Abdominal GI/Abdominal Exam: Normal Bowel Sounds, Non Distended, Soft Additional GI/Abdominal Exam Details: Dressing applied to the right lower quadrant. - Rectal Rectal Exam: Deferred - External Exam: Deferred Exam: Deferred - Extremities Extremities Exam: Normal Inspection - Back Back Exam: Normal Inspection - Neurological Neurological Exam: Alert, Oriented x 3, CN II-XII Intact, Speech Intact / Clear , Moves All Extremities Equally - Psychiatric Psychiatric Exam: Normal Affect Assessment and Plan - Patient Problems (1) Appendicitis Current Visit: Yes Status: Acute Comment: Management per Dr. Loaiza. His white count is coming down. Code(s): K37 - Unspecified appendicitis (2) Flash pulmonary edema Current Visit: Yes Status: Acute Priority: Medium Onset Date: 05/30/17 Comment: This looks like to be negative pressure pulmonary edema, on talking to the nurse anesthesiologist, patient did have the laryngeal spasm post extubation and he did drop his oxygen he needed to BiPAP and the furosemide. His x-ray seems to be stable. Clinically I don't hear any additional sounds is no murmur, his JVP is not raised. Lungs to me seem to be clear. History goes with negative pressure pulmonary edema. I'm not sure there is a value now as incident happened 2 days ago from ordering troponin or a BNP or an echo. As clinically there is no heart murmurs and lungs seem to be clear and JVP is not raised. And he is improving in trems of oxygen needs. This can be looked at later on as an outpatient. Code(s): J81.0 - Acute pulmonary edema (3) Acute post-operative pain Current Visit: Yes Status: Acute Comment: He is on pain medications Code(s): G89.18 - Other acute postprocedural pain (4) Hypokalemia Current Visit: Yes Status: Acute Comment: Resolved. Code(s): E87.6 - Hypokalemia
[2017-06-01] MEDS ORDERED: FUROSEMIDE 10 MG/1 ML - 2 ML VIAL IVP ONE (09:22)
--- NOTE | 2017-06-01 09:30 | PDOC(PROG) ---
Subjective Post Op Day: 2 Pain Management: PO Larson Catheter: No Flatus: Yes Diet: full liquids Ambulating: Yes Date and Time of Service: 06/01/2017 9:20 AM Interval History: Feeling better every day. Doesn't like the full liquid diet. Would like some regular food. Passing gas. Reports he had 2 loose stools yesterday. He is voiding without problem. He reports he is sore all over in his abdomen from the coughing. His chest is sore as well. The coughing has decreased since yesterday. No significant sputum production. Patient is ambulating. When I ask him to sit up he sits up easily. When he was asked to get out of bed he stood up without apparent or significant abdominal pain. His I's and O's are +3700 mL. His hemoglobin and hematocrit have decreased. I think this is dilutional. No signs of bleeding. His white count has decreased to normal. His chest x-ray still shows pulmonary edema. I think it is improved slightly. Objective : Data - Labs CBC and BMP: 06/01/17 04:50 06/01/17 04:50 - Imaging Imaging Details: Chest x-ray read as stable diffuse pulmonary edema. - Vital Signs Vital Signs and I&O: Vital Signs - Last Taken Temperature 99.2 F 06/01/17 08:41 Pulse Rate 78 06/01/17 08:41 Respiratory Rate 18 06/01/17 08:41 Blood Pressure 108/61 06/01/17 08:41 Pulse Ox 91 06/01/17 08:41 Intake and Output (24hr x 4 totals) 05/30/17 05/31/17 06/01/17 06/02/17 05:59 05:59 05:59 05:59 Intake Total 1387 / 3434 1577 / 1577 Output Total 350 / 650 650 / 650 500 / 500 Balance 1037 / 2784 927 / 927 -500 / -500 Objective : Exam - General General Appearance: No Acute Distress, Cooperative - Respiratory Respiratory Exam: Breathing Non Labored, Rales (Bilateral bases.), Coarse Breath Sounds (Bilateral bases.) - Cardiovascular Cardiovascular Exam: RRR, No Murmur - GI/Abdominal GI/Abdominal Exam: Normal Bowel Sounds, Non Distended, Soft, No Masses Additional GI/Abdominal Exam Details: The dressing is clean, dry, and intact. When I barely touched the patient with my hand he winces as though he is in pain. However when I press on his abdomen with a stethoscope it does not seem to cause him any discomfort. His bowel tones are normal today. His main tenderness is around the incision. I'm sure his abdominal wall muscles are sore from all the coughing he did the first 24 hours. No signs of peritoneal irritation. - Neurological Neurological Exam: Alert - Psychiatric Psychiatric Exam: Flat Affect Assessment and Plan - Patient Problems (1) Acute appendicitis with localized peritonitis Current Visit: Yes Status: Acute Priority: High Onset Date: ~05/28/17 Comment: Surgically seems to be doing very well. I will advance to a regular diet. We'll check a CBC in the morning. Patient has been encouraged to ambulate and to use his incentive spirometer. Dressing will need to be removed tomorrow. Dr. Jarvis will cover until Sunday. Likely discharge tomorrow. I would give him a full week of antibiotics with his gangrenous appendix and turbid fluid in his pelvis. Code(s): K35.3 - Acute appendicitis with localized peritonitis (2) Flash pulmonary edema Current Visit: Yes Status: Acute Priority: Medium Onset Date: 05/30/17 Comment: Coughing much less. No more pink frothy sputum. Chest still sounds wet. Patient is +3700 mL on his intake and output. Discussed with Dr. Jerez. We'll give him 20 mg of IV Lasix today. Dr. Jerez feels he needs to be monitored 1 more day prior to discharge. Likely home tomorrow. Code(s): J81.0 - Acute pulmonary edema
[2017-06-01] MEDS: Ertapenem Inj 1 GM in Sodium Chloride 0.9% 100 ML IV SCH (18:52)
[2017-06-01] MEDS: Zolpidem Tab 5 MG TAB PO PRN (21:46)
[2017-06-02] MEDS: oxyCODONE-ACETAMINOPHEN 5-325 TAB PO PRN ×2 (04:27→08:48)
[2017-06-02] MEDS: KETOROLAC 15 MG/1 ML VIAL IVP SCH ×2 (04:27→09:18)
[2017-06-02 05:29] LABS: BASOPHILS # (AUTO) 0.02 10*3/UL; BASOPHILS % (AUTO) 0.3 % (0-1); EOSINOPHILS # (AUTO) 0.23 10*3/UL; EOSINOPHILS % (AUTO) 3.7 % (0-8); Hematocrit [HCT] 33.7 % (42.0-52.0); Hemoglobin [HGB] 11.2 g/dL (14.0-18.0); LYMPHOCYTES # (AUTO) 2.05 10*3/uL; MEAN CORPUSCULAR HEMOGLOBIN 29.2 PG (27-31); MEAN CORPUSCULAR HGB CONC 33.2 g/dL (33-37); MEAN CORPUSCULAR VOLUME 87.8 FL (80-90); MEAN PLATELET VOLUME 10.2 FL (7.4-12.2); MONOCYTES % (AUTO) 9.7 % (5-15); NEUTROPHILS # (AUTO) 3.28 10*3/UL; RED BLOOD COUNT 3.84 10^6/uL (4.70-6.10)
[2017-06-02 05:33] LABS: PLATELET MORPHOLOGY COMMENT NORMAL MORPHOLOGY (NORM); RBC MORPHOLOGY COMMENT NORMAL MORPHOLOGY (NORM); WBC MORPHOLOGY COMMENT NORMAL MORPHOLOGY (NORM)
[2017-06-02 08:34] VITALS: BP 103/63; RESP 14; TEMP 98; O2SAT 98
--- NOTE | 2017-06-02 08:46 | PDOC(PROG) ---
Date and Time of Service: 06/02/2017 8:45 AM Interval History: Subjective Patient feels better. The cough seem to be resolved. No shortness of breath. Pain seemed to be controlled. Objective : Data - Labs CBC and BMP: 06/02/17 04:30 06/01/17 04:50 Objective : Exam - General General Appearance: No Acute Distress, Cooperative - Head Head Exam: Normal Inspection - Eye Eye Exam: Normal Appearance - ENT ENT Exam: Normal Exam - Neck Neck Exam: Normal Inspection - Respiratory Respiratory Exam: Clear to Auscultation - Bilaterally - Cardiovascular Cardiovascular Exam: RRR - GI/Abdominal GI/Abdominal Exam: Normal Bowel Sounds, Non Tender, Non Distended, Soft Additional GI/Abdominal Exam Details: When seem to be clean. - Rectal Rectal Exam: Deferred - External Exam: Deferred Exam: Deferred - Extremities Extremities Exam: Normal Inspection - Back Back Exam: Normal Inspection - Neurological Neurological Exam: Alert, Oriented x 3, CN II-XII Intact, Moves All Extremities Equally - Psychiatric Psychiatric Exam: Normal Affect Assessment and Plan - Patient Problems (1) Appendicitis Current Visit: Yes Status: Acute Comment: He is status post surgery. Thus with Dr. Jarvis will discharge him today on oral antibiotics. Code(s): K37 - Unspecified appendicitis (2) Flash pulmonary edema Current Visit: Yes Status: Acute Priority: Medium Onset Date: 05/30/17 Comment: This seemed to be resolved. This looks likes secondary to negative pressure pulmonary edema. His BNP is mildly elevated. I think this is a reflection of the previous event. We did the test as he stayed another night in hospital. I did tell him there is a chance this may happen again with another surgery and to keep that in the back of his mind. since He doesn't have any more symptoms recovered I don't think there is a need for further testing. But if he have any recurrence of symptoms or shortness of breath after discahrgeo or other symptoms he need to follow up with primary and have more testing done like an echo which I don't think he needs now. Code(s): J81.0 - Acute pulmonary edema
--- NOTE | 2017-06-02 08:57 | DCSUMMARY ---
Discharge Summary Admit Date: 05/30/17 Discharge Date: 06/02/17 Admitting Diagnosis: acute appendicitis Discharge Diagnosis: Acute appendicitis with a necrotic appendix. Negative pressure pulmonary edema Primary Surgery and Date: Appendectomy on 05/30/2017 Hospital Course: This 21-year-old male who developed acute appendicitis at the time surgery Dr. Loaiza describes a necrotic appendix at the base appendix with turbulent fluid in the pelvis. Patient while been extubated developed coughing and developed what he thought was negative pressure pulmonary edema. Therefore is admitted to the hospital. First postoperative day is doing better his O2 saturation requirements were decreasing. X-ray did show some pulmonary edema. But overall he is doing better. He was started on regular diet. He is passing flatus and having bowel movement by second postoperative day. On third postoperative days have an incisional pain only. He had had bowel movements passing flatus. His incision was clean dry nonerythematous. Lungs were clear. There is felt he was well enough to be discharged home. We talked to him about his pain management. There is concerns about having him on narcotics after surgery therefore he has decided he can do ibuprofen and Tylenol only. Will keep him on antibiotics for total of 7 days of antibiotics. Also will put him on Pepcid to help prevent him developing an ulcer Exam - Vitals Vital Signs: Vital Signs Temperature 98 F Temperature Source Temporal Artery Scan Pulse Rate [Pulse Oximeter] 57 Pulse Rate 81 Respiratory Rate 14 Blood Pressure [Right Arm] 103/63 Blood Pressure [Left Arm] 105/60 Blood Pressure 108/61 Pulse Ox 98 Oxygen Flow Rate 1 Oxygen Delivery Method Room Air Height 6 ft 1 in Weight 160 lb 12.8 oz - General General Appearance: No Acute Distress, Cooperative - Neck Neck Exam: Full ROM, No Tenderness - Respiratory Respiratory Exam: POSITIVE: Clear to Auscultation - Bilaterally - Cardiovascular Cardiovascular Exam: POSITIVE: RRR - GI/Abdominal GI/Abdominal Exam: POSITIVE: Normal Bowel Sounds, Non Distended, Soft Additional GI/Abdominal Exam Details: Patient is incision is clean dry nonerythematous. He has incisional Pain only Patient Problems - Patient Problem List (1) Acute appendicitis with localized peritonitis Current Visit: Yes Status: Acute Onset Date: ~05/28/17 Priority: High Code(s): K35.3 - Acute appendicitis with localized peritonitis Category: Medical (2) Flash pulmonary edema Current Visit: Yes Status: Acute Onset Date: 05/30/17 Priority: Medium Code(s): J81.0 - Acute pulmonary edema Category: Medical
== END 2017-06-02 09:22 | disposition home or self-care (01) | DRG 341 ==
LOC: ER 15:17 → OR 19:20 → MED/SURG 21:34
PROVIDERS: ADMIT Surgery; ATTEND Surgery